=== PATIENT | female | born 1955 | race Two or more races ===

== ENCOUNTER 2020-05-09 20:28 | Emergency (ER) | payer OTHER ==
[~2020-05-09] VITALS: Ht 160 cm; Wt 98.9 kg
[2020-05-09 20:31] VITALS: BP 168/86
--- NOTE | 2020-05-09 20:52 | NUR ---
FIRST CONTACT WITH PATIENT, NO REPORT FROM PREVIOUS RN HE DID NOT SEE PATIENT. ERP IN ROOM FOR EVAL. PATIENT C/O PAINFUL URINATION AND BLOOD TINGED URINE WITH PAIN IN BLADDER STARTING AT 1600. DENIES N/V, DENIES FLANK PAIN. NO OTHER COMPLAINTS AT THIS TIME. VSZakiya, LARSN. CALL LIGHT IN REACH
--- NOTE | 2020-05-09 20:54 | NUR ---
UA COLLECTED AND SENT
[2020-05-09 21:05] LABS: MICROSCOPIC AUTO
[2020-05-09] MEDS ORDERED: CEFDINIR 300 MG CAPSULE ONE (21:30)
[2020-05-09] MEDS ORDERED: CEFDINIR 300 MG CAPSULE PO ONE (21:30)
--- NOTE | 2020-05-09 21:36 | NUR ---
MEDICATED PER EMAR, TOLERATED WELL. PATIENT TO BE DISCHARGED
--- NOTE | 2020-05-09 21:43 | NUR ---
Patient given discharge instructions and they have confirmed that they understand the instructions. Patient ambulatory with steady gait.
== END 2020-05-09 21:45 | disposition home or self-care (01) ==
LOC: ED 21:00
DX: N30.01 Acute cystitis with hematuria (principal)
CPT/HCPCS: 81001; 87077; 87086; 87186; 99283

== ENCOUNTER → 2020-06-29 | Outpatient (CLI) | payer OTHER | END | disposition home or self-care (01) | LOC: CFH 09:56 | PROVIDERS: ATTEND Family Medicine | DX: Z12.31 Encounter for screening mammogram for malignant neoplasm of breast (principal) | CPT/HCPCS: 77067 ==

== ENCOUNTER 2020-07-29 17:37 | Emergency (ER) | payer OTHER ==
[~2020-07-29] VITALS: Ht 160 cm; Wt 97.3 kg
--- NOTE | 2020-07-29 17:48 | NUR ---
NOT IN LOBBY
[2020-07-29 18:41] LABS: MICROSCOPIC INDICATED
--- NOTE | 2020-07-29 19:11 | NUR ---
security escort: pt from lobby to room 20
[2020-07-29] MEDS ORDERED: CEFDINIR 300 MG CAPSULE ONE (19:23)
[2020-07-29 19:30] LABS: BASOPHILS % (AUTO) 1 % (0-1); EOSINOPHILS % (AUTO) 2 % (1-7); LYMPHOCYTES % (AUTO) 20 % (22-44); MEAN CORPUSCULAR HEMOGLOBIN 30.2 pg (27.0-34.8); MEAN CORPUSCULAR HGB CONC 34.3 g/dL (32.4-35.8); MEAN PLATELET VOLUME 7.3 fL (7.4-10.4); MONOCYTES % (AUTO) 9 % (2-9); NEUTROPHILS % (AUTO) 68 % (42-75); PLATELET COUNT 312 x10^3/uL (130-400); RED BLOOD COUNT 5.24 x10^6/uL (3.82-5.3); RED CELL DISTRIBUTION WIDTH 13.7 % (9.6-15.2)
[2020-07-29] MEDS ORDERED: CEFDINIR 300 MG CAPSULE PO ONE (19:30)
[2020-07-29 19:31] LABS: MD NO
[2020-07-29 19:41] LABS: ALBUMIN 3.8 g/dL (3.4-5.0); ANION GAP 3 mmol/L (5-15); CALCIUM 9.7 mg/dL (8.5-10.1); CHLORIDE 108 mmol/L (98-107)
[2020-07-29 19:44] LABS: CREATININE 0.89 mg/dL (0.55-1.02)
[2020-07-29 20:14] VITALS: BP 140/86
== END 2020-07-29 20:54 | disposition home or self-care (01) ==
LOC: ED 20:47
DX: N30.01 Acute cystitis with hematuria (principal); R30.0 Dysuria
CPT/HCPCS: 36415; 80048; 81001; 82040; 85025; 87077; 87086; 87186; 99283